=== PATIENT | male | born 1975 | race Caucasian/White ===

== ENCOUNTER → 2018-04-13 | Emergency (ER) | payer OTHER ==
[~2018-04-13] MED LIST: NOVOLIN 70100 UNITS/ SUB-Q; POTASSIUM CHLO20 ME1 PO; SLOW-MAG71.5 MG PO
== END | disposition left against medical advice (07) ==
LOC: ED 21:10
DX: Z53.21 Procedure and treatment not carried out due to patient leaving prior to being seen by health care provider (principal)

== ENCOUNTER 2022-11-01 08:19 | Emergency (ER) | payer OTHER ==
[~2022-11-01] VITALS: Ht 182.9 cm; Wt 79.4 kg
--- OUTSIDE RECORDS SUMMARY | 2022-11-01 08:29 | XMS ---
PreManage Notification: DEBBI COLLIER Security Bi Report Developer Events No recent Security Events currently on file CRITERIA MET - Group Notification CARE PROVIDERS There are no care providers on record at this time. Zak has no Care Guidelines for this patient. [place] VISIT COUNT (12 MO.) 1 ROSARIO Bonds TOTAL 1 NOTE: Visits indicate total known visits. ED/C VISIT TRACKING (12 MO.) 11/01/2022 08:20 ROSARIO [facility] OR TYPE: Emergency COMPLAINT: - R SIDE FACIAL SWELLING INPATIENT VISIT TRACKING (12 MO.) No inpatient visits to display in this time frame [email or web address]
[2022-11-01] MEDS ORDERED: CLEOCIN HCL300 MG PO (09:19)
== END 2022-11-01 09:36 | disposition home or self-care (01) ==
LOC: ED 08:19
DX: K04.7 Periapical abscess without sinus (principal); E10.9 Type 1 diabetes mellitus without complications; F17.200 Nicotine dependence, unspecified, uncomplicated
CPT/HCPCS: 99282